=== PATIENT | male | born 1945 | race Hispanic/Latino ===

== ENCOUNTER 2017-01-13 12:50 | Emergency (ER) | payer BC, MEDICARE ==
--- NOTE | 2017-01-13 14:13 | C.PDOC ---
History Of Present Illness 71 y/o male presents to ED with complaints of scalp discomfort for x7 years coming and going with tenderness to touch. Patient has been applying mouth wash to scalp and irritation arising. Patient denies Headache or vision changes. 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 No other complaints at this time. History Per: Patient History/Exam Limitations: no limitations Onset/Duration Of Symptoms: Waxing/Waning Current Symptoms Are (Timing): Still Present Past Medical History Reviewed: Historical Data, Nursing Documentation, Vital Signs - Your.MD Procedures RADICAL EXCIS SKIN LES (03/14/13) SKIN REPAIR & PLASTY NEC (03/14/13) Family History: States: No Known Family Hx Review Of Systems Except As Marked, All Systems Reviewed And Found Negative. Constitutional: Negative for: Fever, Chills Eyes: Negative for: Vision Change Cardiovascular: Negative for: Chest Pain Respiratory: Negative for: Shortness of Breath Gastrointestinal: Negative for: Nausea, Vomiting, Diarrhea Musculoskeletal: Positive for: Leg Pain (Leg cramping when walking more than 1 block) Neurological: Negative for: Headache Physical Exam - Physical Exam Appears: Non-toxic, No Acute Distress Skin: Normal Color, Warm Head: Atraumatic, Normacephalic, Other (Scalp greasy and scally, mild rash anterior scalp and forehead) Eye(s): bilateral: Normal Inspection, PERRL Oral Mucosa: Moist Neck: Normal ROM Cardiovascular: Rhythm Regular Respiratory: Normal Breath Sounds, No Rales, No Rhonchi, No Wheezing Gastrointestinal/Abdominal: Soft, No Tenderness, No Guarding, No Rebound Extremity: Other (Venous gradt harvesting ) Extremity: Bilateral: No Pedal Edema Neurological/Psych: Oriented x3, Normal Speech, Normal Cognition Disposition Doctor Will See Patient In The: Office Counseled Patient/Family Regarding: Studies Performed, Diagnosis - Disposition Disposition: HOME/ ROUTINE Disposition Time: 13:50 Condition: GOOD - Clinical Impression Clinical Impression: Scalp irritation - PA / [employer] / Resident Statement / has reviewed & agrees with the documentation as recorded. MD/ has examined the patient and agrees with the treatment plan. - Scribe Statement The provider has reviewed the documentation as recorded by the Jinny Roper All medical record entries made by the Jinny were at my direction and personally dictated by me. I have reviewed the chart and agree that the record accurately reflects my personal performance of the history, physical exam, medical decision making, and the department course for this patient. I have also personally directed, reviewed, and agree with the discharge instructions and disposition.
== END 2017-01-13 14:20 | disposition home or self-care (01) ==
LOC: C.ER 12:50
DX: L98.8 Other specified disorders of the skin and subcutaneous tissue (principal)